=== PATIENT | female | born 1965 | race Caucasian/White ===

== ENCOUNTER 2016-03-27 01:49 | Inpatient (IN) | payer OTHER ==
--- NOTE | 2016-03-27 02:08 | PDOC ---
History of Present Illness - General History Source: Patient Exam Limitations: No Limitations - History of Present Illness Initial Comments: 03/27/16 02:28 The patient is a 51 year old female with significant past medical history of Asthma, hypoglycemia, and COPD who presents to the ED with 4 days of SOB. Patient reports she went to [place] recently and came back on Friday. She states since then she felt SOB and believes the changes in temperature triggered her symptoms. She also reports nonproductive cough and chest tightness , which she describes as being crushed. Patient reports her symptoms are consistent to her previous COPD and asthma exacerbation. She reports h/o of intubation and hospitalization for her asthma exacerbation. Patient visited Dr. Stockton earlier today and was discharge on prescription from the office. However , she was unable to receive her prescription. Patient denies fever, chills, diaphoresis, chest pain, jaw pain, shoulder pain, and arm pain. The patient denies abdominal pain, nausea, vomiting, and diarrhea. Allergies: ketorolac tromethamine, morphine, tramadol, levofloxacin, penicillins , sulfa, clindamycin, acetaminophen, oxycodone HCl, contrast dye Social History: No alcohol, tobacco, or drug use reported. Past Surgical History: TKR left x2 PCP: Dr. Shanta Stockton <Louisa Adorno - Last Filed: 03/27/16 05:57> - General History Source: Patient <Kev Cedillo - Last Filed: 03/27/16 06:00> - General Chief Complaint: Respiratory Stated Complaint: DIFFICULTY BREATHING Time Seen by Provider: 03/27/16 02:06 Past History <Louisa Adorno - Last Filed: 03/27/16 05:57> - Past Medical History Anemia: No Asthma: Yes Cancer: No Cardiac Disorders: No CVA: No COPD: Yes CHF: No Dementia: No Diabetes: (HYPOGLYCEMIA) GI Disorders: No Disorders: No HTN: No Hypercholesterolemia: No Liver Disease: No Seizures: No Thyroid Disease: Yes (3 MASSES) - Surgical History Abdominal Surgery: Yes (LAPARSCOPIC) Appendectomy: No Cholecystectomy: No Orthopedic Surgery: Yes (TKR LEFT X2) - Immunization History Immunization Up to Date: Yes - Psycho/Social/Smoking Cessation Hx Anxiety: No Suicidal Ideation: No Smoking History: Never smoked Have you smoked in the past 12 months: No Hx Alcohol Use: No Drug/Substance Use Hx: No Substance Use Type: None Hx Substance Use Treatment: No <Kev Cedillo - Last Filed: 03/27/16 06:00> - Past Medical History Allergies/Adverse Reactions: Allergies Allergy/AdvReac Type Severity Reaction Status Date / Time ketorolac tromethamine Allergy Severe Difficulty Verified 03/27/16 01:54 [From Toradol] Breathing morphine Allergy Severe Difficulty Verified 03/27/16 01:54 Breathing tramadol Allergy Severe Difficulty Verified 03/27/16 01:54 Breathing levofloxacin [From Levaquin] Allergy Intermediate Hives Verified 03/27/16 01:54 Penicillins Allergy Intermediate Swelling Verified 03/27/16 01:54 Sulfa (Sulfonamide Allergy Intermediate Rash Verified 03/27/16 01:54 Antibiotics) clindamycin Allergy Verified 03/27/16 01:54 acetaminophen [From Percocet] AdvReac Severe Vomiting Verified 03/27/16 01:54 oxycodone HCl [From Percocet] AdvReac Severe Vomiting Verified 03/27/16 01:54 PECANS Allergy Intermediate Swelling Uncoded 03/27/16 01:54 contrast dye Allergy Uncoded 03/27/16 01:54 MUSHROOMS Allergy Rash Uncoded 03/27/16 01:54 SEAFOOD Allergy Swelling Uncoded 03/27/16 01:54 Home Medications: Ambulatory Orders Albuterol Sulfate Inhaler - [Ventolin HFA Inhaler -] 1 - 2 inh PO QID 06/16/14 Levothyroxine [Synthroid -] 50 mcg PO DAILY 03/27/16 Review of Systems - Review of Systems Able to Perform ROS?: Yes Comments:: 03/27/16 02:28 CONSTITUTIONAL: Absent: fever, chills, diaphoresis, generalized weakness, malaise, loss of appetite HEENT: Absent: rhinorrhea, nasal congestion, throat pain, throat swelling, difficulty swallowing, mouth swelling, ear pain, eye pain, visual Changes CARDIOVASCULAR: Absent: chest pain, syncope, palpitations, irregular heart rate, lightheadedness , peripheral edema RESPIRATORY: +cough, shortness of breath, chest tightness Absent: dyspnea with exertion, orthopnea, wheezing, stridor, hemoptysis GASTROINTESTINAL: Absent: abdominal pain, abdominal distension, nausea, vomiting, diarrhea, constipation, melena, hematochezia GENITOURINARY: Absent: dysuria, frequency, urgency, hesitancy, hematuria, flank pain, genital pain MUSCULOSKELETAL: Absent: myalgia, arthralgia, joint swelling SKIN: Absent: rash, itching, pallor NEUROLOGIC: Absent: headache, focal weakness or paresthesias, dizziness, unsteady gait, seizure, mental status changes, bladder or bowel incontinence PSYCHIATRIC: Absent: anxiety, depression, suicidal or homicidal ideation, hallucinations. <Louisa Adorno - Last Filed: 03/27/16 05:57> *Physical Exam - Vital Signs Last Vital Signs Temp Pulse Resp BP Pulse Ox 98.5 F 99 H 18 155/95 97 03/27/16 01:54 03/27/16 01:54 03/27/16 01:54 03/27/16 01:54 03/27/16 01:54 - Physical Exam Comments: 03/27/16 02:28 GENERAL: Well developed, well nourished. Awake and alert. No acute distress. HEENT: Normocephalic, atraumatic. PERRLA, EOMI. No conjunctival pallor. Sclera are non- icteric. Moist mucous membranes. Oropharynx is clear. NECK: Supple. Full ROM. No JVD. Carotid pulses 2+ and symmetric, without bruits. No thyromegaly. No lymphadenopathy. CARDIOVASCULAR: Regular rate and rhythm. No murmurs, rubs, or gallops. Distal pulses are 2+ and symmetric. PULMONARY: Decreased breath sounds bilaterally. No wheezing, rales or rhonchi. ABDOMINAL: Soft. Non-tender. Non-distended. No rebound or guarding. No organomegaly. Normoactive bowel sounds. MUSCULOSKELETAL Normal range of motion at all joints. No bony deformities or tenderness. No CVA tenderness. EXTREMITIES: No cyanosis. No clubbing. No edema. No calf tenderness. SKIN: Warm and dry. Normal capillary refill. No rashes. No jaundice. NEUROLOGICAL: Alert, awake, appropriate. Cranial nerves 2-12 intact. Moving all extremities. No focal neurological deficits. PSYCHIATRIC: Cooperative. Good eye contact. Appropriate mood and affect. <Louisa Adorno - Last Filed: 03/27/16 05:57> - Vital Signs Last Vital Signs Temp Pulse Resp BP Pulse Ox 98.5 F 99 H 18 155/95 97 03/27/16 01:54 03/27/16 01:54 03/27/16 01:54 03/27/16 01:54 03/27/16 01:54 <Kev Cedillo - Last Filed: 03/27/16 06:00> ED Treatment Course - LABORATORY CBC & Chemistry Diagram: 03/27/16 02:30 03/27/16 02:30 <Louisa Adorno - Last Filed: 03/27/16 05:57> - LABORATORY CBC & Chemistry Diagram: 03/27/16 02:30 03/27/16 02:30 <Kev Cedillo - Last Filed: 03/27/16 06:00> Medical Decision Making - Medical Decision Making 03/27/16 05:[address] Shanta Stockton (via answering service) at 5:56 and patient's case was discussed. <Louisa Adorno - Last Filed: 03/27/16 05:57> - Medical Decision Making 03/27/16 06:00 Dr. Cedillo: The scribe's documentation has been prepared under my direction and personally reviewed by me in its entirery. I confirm that the note above accurately reflects all work, treatment, procedures, and medical decision making performed by me. <Kev Cedillo - Last Filed: 03/27/16 06:00> *DC/Admit/Observation/Transfer - Attestations Scribe Attestion: 03/27/16 02:28 Documentation prepared by Louisa Adorno, acting as durable medical equipment repairer for Kev Cedillo MD <Louisa Adorno - Last Filed: 03/27/16 05:57> <Kev Cedillo - Last Filed: 03/27/16 06:00> Diagnosis at time of Disposition: COPD (chronic obstructive pulmonary disease) Qualifiers: COPD type: unspecified COPD Qualified Code(s): J44.9 - Chronic obstructive pulmonary disease, unspecified - Discharge Dispostion Condition at time of disposition: Poor - Referrals Referrals: Shanta Stockton MD [Primary Care Provider] -
[2016-03-27] MEDS ORDERED: MAGNESIUM SULF 50% (8.12 MEQ/2 ML-1 GM VIAL) IVPB ONE (02:09)
[2016-03-27] MEDS ORDERED: ALBUTEROL SO4 2.5/IPRATROPIUM 0.5 INH SOL 3 ML VIAL.NEB. NEB STA ×4 (02:09→05:20)
[2016-03-27] MEDS ORDERED: methylPREDNISolone NA SUCC 125 MG/2 ML VIAL IVPB ONE (02:09)
[2016-03-27] MEDS ORDERED: ALBUTEROL SO4 2.5/IPRATROPIUM 0.5 INH SOL 3 ML VIAL.NEB. NEB ONE ×2 (02:36→05:32)
[2016-03-27] MEDS ORDERED: MAGNESIUM SULF 50% (8.12 MEQ/2 ML-1 GM VIAL) ONE (02:36)
[2016-03-27] MEDS ORDERED: methylPREDNISolone NA SUCC 125 MG/2 ML VIAL ONE ×2 (02:37→08:53)
[2016-03-27 02:39] LABS: BASOPHIL 0.8 % (0-2.0); EOSINOPHIL 2.7 % (0-4.5); MCH 30.5 pg (25.7-33.7); MCHC 33.1 g/dl (32.0-36.0); MEAN CELL VOLUME 92.1 fl (80-96); MEAN PLT VOLUME 6.4 fl (7.5-11.1); NEUTROPHILS 66.5 % (42.8-82.8); PLATELET COUNT 330 K/MM3 (134-434); RDW 14.1 % (11.6-15.6); WHITE BLOOD COUNT 10.1 K/mm3 (4.0-10.0)
[2016-03-27 03:04] LABS: ALBUMIN 3.6 g/dl (3.4-5.0); ANION GAP 10 (8-16); BILIRUBIN,TOTAL 0.3 mg/dL (0.2-1.0); CALCIUM 8.6 mg/dL (8.5-10.1); CO2 27 mmol/L (21-32); CREATININE 0.8 mg/dL (0.55-1.02); GLUCOSE,RANDOM 108 mg/dL (74-106); SGOT/AST 28 U/L (15-37); SGPT/ALT 36 U/L (12-78); TOT PROT 7.3 g/dl (6.4-8.2)
[2016-03-27 03:05] LABS: ALK PHOS 103 U/L (45-117)
[2016-03-27] MEDS ORDERED: ALBUTEROL SO4 2.5/IPRATROPIUM 0.5 INH SOL 3 ML VIAL.NEB. NEB PRN (07:26)
[2016-03-27] MEDS: methylPREDNISolone NA SUCC 125 MG/2 ML VIAL IVPB SCH ×2 (09:08→18:12)
--- NOTE | 2016-03-27 09:33 | EKG ---
Test Reason : Blood Pressure : / mmHG Vent. Rate : 105 BPM Atrial Rate : 105 BPM P-R Int : 164 ms QRS Dur : 092 ms QT Int : 372 ms P-R-T Axes : 073 -17 026 degrees QTc Int : 491 ms SINUS TACHYCARDIA POSSIBLE LEFT ATRIAL ENLARGEMENT BORDERLINE ECG WHEN COMPARED WITH ECG OF 04-JUL-2015 00:53, NON-SPECIFIC CHANGE IN ST SEGMENT IN ANTERIOR LEADS Confirmed by JAMEY NOLEN, MARIA E ([id number]) on 03/27/2016 9:33:05 AM Referred By: Confirmed By:MARIA E CONCEPCION MD
[2016-03-27] MEDS ORDERED: HEPARIN NA (PORCINE) 5,000 UNITS/ML 1ML VIAL ONE (10:07)
[2016-03-27] MEDS: HEPARIN NA (PORCINE) 5,000 UNITS/ML 1ML VIAL SQ SCH ×2 (10:10→22:15)
[2016-03-27 10:51] VITALS: BMI 28.3
--- NOTE | 2016-03-27 11:02 | HP ---
Admitting History and Physical - Primary Care Physician PCP: Shanta Stockton - Admission Chief Complaint: AE COPD History Source: Medical Record - Past Medical History ...LMP: 05/23/15 - Smoking History Smoking history: Never smoked Have you smoked in the past 12 months: No - Alcohol/Substance Use Hx Alcohol Use: No Home Medications - Allergies Allergies/Adverse Reactions: Allergies Allergy/AdvReac Type Severity Reaction Status Date / Time ketorolac tromethamine Allergy Severe Difficulty Verified 03/27/16 01:54 [From Toradol] Breathing morphine Allergy Severe Difficulty Verified 03/27/16 01:54 Breathing tramadol Allergy Severe Difficulty Verified 03/27/16 01:54 Breathing levofloxacin [From Levaquin] Allergy Intermediate Hives Verified 03/27/16 01:54 Penicillins Allergy Intermediate Swelling Verified 03/27/16 01:54 Sulfa (Sulfonamide Allergy Intermediate Rash Verified 03/27/16 01:54 Antibiotics) clindamycin Allergy Verified 03/27/16 01:54 acetaminophen [From Percocet] AdvReac Severe Vomiting Verified 03/27/16 01:54 oxycodone HCl [From Percocet] AdvReac Severe Vomiting Verified 03/27/16 01:54 PECANS Allergy Intermediate Swelling Uncoded 03/27/16 01:54 contrast dye Allergy Uncoded 03/27/16 01:54 MUSHROOMS Allergy Rash Uncoded 03/27/16 01:54 SEAFOOD Allergy Swelling Uncoded 03/27/16 01:54 - Home Medications Home Medications: Ambulatory Orders Albuterol Sulfate Inhaler - [Ventolin HFA Inhaler -] 1 - 2 inh PO QID 06/16/14 Levothyroxine [Synthroid -] 50 mcg PO DAILY 03/27/16 Review of Systems - Review of Systems Constitutional: denies: Chills, Fever Cardiovascular: reports: Chest Pain (ATYPICAL. REPRODUCIBLE WITH DEEP INSPIRATION. PLEURITIC) Respiratory: reports: SOB Gastrointestinal: denies: Abdominal Pain Physical Examination Vital Signs: Vital Signs Temperature 98.2 F 03/27/16 08:27 Pulse Rate 103 H 03/27/16 10:30 Respiratory Rate 18 03/27/16 10:30 Blood Pressure 126/75 03/27/16 10:30 O2 Sat by Pulse Oximetry (%) 94 L 03/27/16 10:30 Constitutional: Yes: Calm Cardiovascular: Yes: Regular Rate and Rhythm, S1, S2 Respiratory: Yes: Rhonchi Gastrointestinal: Yes: Normal Bowel Sounds, Soft Edema: No Imaging - Results Chest X-ray: Report Reviewed Problem List - Problems (1) COPD (chronic obstructive pulmonary disease) Code(s): J44.9 - CHRONIC OBSTRUCTIVE PULMONARY DISEASE, UNSPECIFIED Qualifiers : COPD type: unspecified COPD Qualified Code(s): J44.9 - Chronic obstructive pulmonary disease, unspecified (2) Thyroid mass Code(s): E07.9 - DISORDER OF THYROID, UNSPECIFIED (3) Asthma Code(s): J45.909 - UNSPECIFIED ASTHMA, UNCOMPLICATED Assessment/Plan The patient is a 51 year old female with significant past medical history of Asthma, hypoglycemia, and COPD who presents to the ED with 4 days of SOB. Patient reports she went to [place] recently and came back on Friday. She states since then she felt SOB and believes the changes in temperature triggered her symptoms. She also reports nonproductive cough and chest tightness , which she describes as being crushed. Patient reports her symptoms are consistent to her previous COPD and asthma exacerbation. She reports h/o of intubation and hospitalization for her asthma exacerbation. Patient visited Dr. Stockton earlier today and was discharge on prescription from the office. However , she was unable to receive her prescription. Patient denies fever, chills, diaphoresis, chest pain, jaw pain, shoulder pain, and arm pain. The patient denies abdominal pain, nausea, vomiting, and diarrhea. Allergies: ketorolac tromethamine, morphine, tramadol, levofloxacin, penicillins , sulfa, clindamycin, acetaminophen, oxycodone HCl, contrast dye Social History: No alcohol, tobacco, or drug use reported. Past Surgical History: TKR left x2 PCP: Dr. 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
--- NOTE | 2016-03-27 14:51 | CONSULT ---
Consultation: CONSULT: INFECTIOUS DISEASE CONSULT REQUEST: We have been asked to medically evaluate this patient for Pneumonia/COPD. HISTORY OF PRESENT ILLNESS: 51 year old female presented to the ED with chief complaints of SOB x 4days. Patient states that she returned after a month trip from [place] 5 days ago. Then started having wheeze on/off, difficulty in breathing got worse over the days. Since last 2 days, heard abnormal sounds while breathing. It was associated with cough on/off, non productive, gets nasty taste in the mouth. SOB got worse on lying flat in bed. Headache +, on/off. Had stuffy nose last night. Patient states she has chest pressure type of discomfort like " Elephant sitting on chest". No h/o prior heart problems. Patient feels tired and is gaining weight. In her 20's she had pecan pie, got anaphylaxis and nearly got intubated. No h/o intubation due to COPD. Didn't get flu shot this year. Last year when she got it patient mentions she got flu from the flu vaccine Denies sick contacts. Denies fever, chills, rigors. 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 Allergies: Ketorolac, Morphine, Tramadol, Levofloxacin (gets a rash), Penicillins, clindamycin and sulfa (gets SOB), Oxycodone, acetaminophen, contrast dye, seafood, pecans, strawberry. Patient mentions she is NOT ALLERGIC TO Azithromycin, Flagyl, Ciprofloxacin. Verbally confirmed. Past Surgical Hx: TKR ( 04/22/2014) x 2, Left thyroid lobectomy Hospitalization: 4 admissions in 2016. Last admitted in 06/30/2015 Social Hx: Never smoked, never took alcohol, no illicit drugs Lives with her daughter and grand child Lifestyle sedentary, is in disability PCP: Dr. Mahin Parker REVIEW OF SYSTEMS: CONSTITUTIONAL: Absent: fever, chills, diaphoresis, generalized weakness, malaise, loss of appetite, weight change HEENT: Absent: rhinorrhea, nasal congestion, throat pain, throat swelling, difficulty swallowing, mouth swelling, ear pain, eye pain, visual changes CARDIOVASCULAR: Absent: chest pain, syncope, palpitations, irregular heart rate, lightheadedness , peripheral edema RESPIRATORY: Present: cough, shortness of breath, dyspnea with exertion, orthopnea, wheezing Absent: stridor, hemoptysis GASTROINTESTINAL: Present: abdominal pain Absent: abdominal distension, nausea, vomiting, diarrhea, constipation, melena , hematochezia GENITOURINARY: Absent: dysuria, frequency, urgency, hesitancy, hematuria, flank pain, genital pain MUSCULOSKELETAL: Absent: myalgia, arthralgia, joint swelling, back pain, neck pain SKIN: Absent: rash, itching, pallor HEMATOLOGIC/IMMUNOLOGIC: Absent: easy bleeding, easy bruising, lymphadenopathy, frequent infections ENDOCRINE: Absent: unexplained weight gain, unexplained weight loss, heat intolerance, cold intolerance NEUROLOGIC: Absent: headache, focal weakness or paresthesias, dizziness, unsteady gait, seizure, mental status changes, bladder or bowel incontinence PSYCHIATRIC: Absent: anxiety, depression, suicidal or homicidal ideation, hallucinations. PHYSICAL EXAMINATION Vital Signs - 24 hr 03/27/16 03/27/16 03/27/16 07:10 07:33 08:27 Temperature 98.2 F Pulse Rate Pulse Rate [ 95 H 100 H Left Radial] Respiratory 20 20 20 Rate Blood Pressure Blood Pressure 148/95 136/85 [Right Arm] O2 Sat by Pulse 98 98 99 Oximetry (%) 03/27/16 03/27/16 10:30 13:29 Temperature Pulse Rate 103 H Pulse Rate [ 110 H Left Radial] Respiratory 18 16 Rate Blood Pressure 126/75 Blood Pressure 144/76 [Right Arm] O2 Sat by Pulse 94 L 94 L Oximetry (%) GENERAL: Patient is lying in bed in propped up position, Awake, alert, and fully oriented, mild respiratory distress. HEAD: Normal with no signs of trauma. EYES: Mild proptosis, EOM intact, no pallor or icterus. EARS, NOSE, THROAT: Ears normal, Moist mucous membranes. NECK: Supple LUNGS: Breath sounds equal, clear to auscultation bilaterally. No wheezes, and no crackles. No accessory muscle use. HEART: Regular rate and rhythm, normal S1 and S2, Systolic murmur +. ABDOMEN: Soft, nontender, not distended, normoactive bowel sounds, no guarding, no rebound, no masses. No hepatomegaly or splenomegaly. MUSCULOSKELETAL: Normal range of motion at all joints. No bony deformities or tenderness. No CVA tenderness. UPPER EXTREMITIES: 2+ pulses, warm, well-perfused. No cyanosis. No clubbing. Cap refill <2 seconds. No peripheral edema. LOWER EXTREMITIES: 2+ pulses, warm, well-perfused. No calf tenderness. B/L trace pitting edema, torturous veins + Left. NEUROLOGICAL: Cranial nerves II-XII intact. Normal speech. Gait not observed. PSYCHIATRIC: Cooperative. Good eye contact. Appropriate mood and affect. SKIN: Warm, dry, normal turgor, no rashes or lesions noted. Active Medications Generic Name Dose Route Start Last Admin Trade Name Freq PRN Reason Stop Dose Admin Albuterol/Ipratropium 1 amp 03/27/16 07:26 Duoneb - NEB Q6H PRN SHORTNESS OF BREATH Heparin Sodium (Porcine) 5,000 unit 03/27/16 10:00 03/27/16 10:10 Heparin - SQ 5,000 unit BID DAWIT Administration Levothyroxine Sodium 50 mcg 03/28/16 07:00 Synthroid - PO DAILY@0700 DAWIT Methylprednisolone Sodium Succinate 80 mg 03/27/16 09:00 03/27/16 09:08 Solu-Medrol - IVPB 80 mg Q8H-IV DAWIT Administration 51 year old female presented to the ED with chief complaints of SOB x 4days ASSESSMENT: 1. AE of Asthma 2. COPD - Now stable 3. Hypoglycemia 4. 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 Patient presented with SOB, no h/o fever, afebrile since admission, negative CXR. Doesn't need antibiotics at this time, discussed with Dr. Stanford If needed, can use Azithromycin Nasal oxygen PRN Inhaled bronchodilaters PRN Maintain oxygen sat >90% # FEN Not on IV fluids Electrolytes WNL # Prophylaxis For DVT: On Heparin For GI: Not indicated Illness, Investigation and plan of care explained to the patient. She verbalized understanding. Case seen and discussed with Dr. Stanford Thank you for the consultative opportunity. Visit type - Emergency Visit Emergency Visit: Yes ED Registration Date: 03/27/16 Care time: The patient presented to the Emergency Department on the above date and was hospitalized for further evaluation of their emergent condition. - New Patient This patient is new to me today: Yes Date on this admission: 03/27/16 - Critical Care Critical Care patient: No
--- NOTE | 2016-03-27 15:02 | CONSULT ---
Consult Consult Specialty:: PULMONARY Referred by:: Dr. Pritchard Reason for Consultation:: shortness of breath - History of Present Illness Chief Complaint: shortness of breath History of Present Illness: 51yo female with h/o asthma/COPD, hypothyroidism who presents with worsening shortness of breath x 4 days. She just returned from [place] 4 days ago, no sick contacts but she attributes her worsening dyspnea to the change in air temperature. She reports chest tightness and a nonproductive cough. No fevers, chills or sweats. She reports an attempted intubation in the past, is on prednisone about once every 2 months. She is a never smoker. She is maintained on nebulizers at home, used to be on a LABA/ICS but does not take them anymore. - History Source History Provided By: Patient, Medical Record Limitations to Obtaining History: No Limitations - Past Medical History Pulmonary: Yes: Asthma, COPD ...LMP: 05/23/15 Endocrine: Yes: Hypothyroidism - Alcohol/Substance Use Hx Alcohol Use: No - Smoking History Smoking history: Never smoked Have you smoked in the past 12 months: No Home Medications - Allergies Allergies/Adverse Reactions: Allergies Allergy/AdvReac Type Severity Reaction Status Date / Time ketorolac tromethamine Allergy Severe Difficulty Verified 03/27/16 01:54 [From Toradol] Breathing morphine Allergy Severe Difficulty Verified 03/27/16 01:54 Breathing tramadol Allergy Severe Difficulty Verified 03/27/16 01:54 Breathing levofloxacin [From Levaquin] Allergy Intermediate Hives Verified 03/27/16 01:54 Penicillins Allergy Intermediate Swelling Verified 03/27/16 01:54 Sulfa (Sulfonamide Allergy Intermediate Rash Verified 03/27/16 01:54 Antibiotics) clindamycin Allergy Verified 03/27/16 01:54 acetaminophen [From Percocet] AdvReac Severe Vomiting Verified 03/27/16 01:54 oxycodone HCl [From Percocet] AdvReac Severe Vomiting Verified 03/27/16 01:54 PECANS Allergy Intermediate Swelling Uncoded 03/27/16 01:54 contrast dye Allergy Uncoded 03/27/16 01:54 MUSHROOMS Allergy Rash Uncoded 03/27/16 01:54 SEAFOOD Allergy Swelling Uncoded 03/27/16 01:54 - Home Medications Home Medications: Ambulatory Orders Albuterol Sulfate Inhaler - [Ventolin HFA Inhaler -] 1 - 2 inh PO QID 04/02/15 Levothyroxine [Synthroid -] 50 mcg PO DAILY 03/27/16 Review of Systems - Review of Systems Constitutional: reports: Weakness. denies: Chills, Fever Eyes: denies: Recent Change in Vision HENT: denies: Nasal Congestion, Throat Pain Neck: denies: Stiffness, Tenderness Cardiovascular: reports: Shortness of Breath. denies: Chest Pain, Edema, Palpitations Respiratory: reports: Cough, Exercise Intolerance, SOB, SOB on Exertion, Wheezing. denies: Hemoptysis Gastrointestinal: denies: Abdominal Pain, Nausea, Vomiting Genitourinary: denies: Dysuria, Hematuria Neurological: denies: Dizziness, Headache Physical Exam Vital Sings: Vital Signs Temperature 98.2 F 03/27/16 08:27 Pulse Rate 110 H 03/27/16 13:29 Respiratory Rate 16 03/27/16 13:29 Blood Pressure 144/76 03/27/16 13:29 O2 Sat by Pulse Oximetry (%) 94 L 03/27/16 13:29 Constitutional: Yes: Anxious Eyes: Yes: Conjunctiva Clear, EOM Intact HENT: Yes: Atraumatic, Normocephalic Neck: Yes: Supple, Trachea Midline Cardiovascular: Yes: Regular Rate and Rhythm Respiratory: Yes: Diminished (distant breath sounds), Poor Air Entry ...Clubbing: No Gastrointestinal: Yes: Normal Bowel Sounds, Soft. No: Tenderness Edema: No Imaging - Results Chest X-ray: Report Reviewed, Image Reviewed (no infiltrates) Problem List - Problems (1) Acute asthma exacerbation Code(s): J45.901 - UNSPECIFIED ASTHMA WITH (ACUTE) EXACERBATION (2) COPD (chronic obstructive pulmonary disease) Code(s): J44.9 - CHRONIC OBSTRUCTIVE PULMONARY DISEASE, UNSPECIFIED Qualifiers : COPD type: unspecified COPD Qualified Code(s): J44.9 - Chronic obstructive pulmonary disease, unspecified (3) Hypothyroidism Code(s): E03.9 - HYPOTHYROIDISM, UNSPECIFIED Assessment/Plan Acute Asthma Exacerbation COPD Hypothryoidism - IV medrol - inhaled bronchodilators standing and PRN - O2 to keep SpO2 >90% - monitor daily peak flow - DVT prophylaxis - will need outpt PFTs - when ready for discharge, should be discharged on high dose LABA/ICS Thank you for this consult Fei Hewitt MD
--- NOTE | 2016-03-27 16:11 | PN ---
Teaching Attending Note Name of Resident: Fauzia Díaz ATTENDING PHYSICIAN STATEMENT I saw and evaluated the patient. I reviewed the resident's note and discussed the case with the resident. I agree with the resident's findings and plan as documented. SUBJECTIVE: OBJECTIVE: ASSESSMENT AND PLAN: asthma exacerbation0 ?triggered by cleaning agents- management per pulmonary doubt infection would screen for influenza multiple antibiotic allergies noted
[2016-03-27] MEDS: ALBUTEROL SO4 2.5/IPRATROPIUM 0.5 INH SOL 3 ML VIAL.NEB. NEB SCH (17:25)
[2016-03-28] MEDS: ALBUTEROL SO4 2.5/IPRATROPIUM 0.5 INH SOL 3 ML VIAL.NEB. NEB SCH ×4 (00:10→23:03)
[2016-03-28] MEDS: methylPREDNISolone NA SUCC 125 MG/2 ML VIAL IVPB SCH ×3 (02:27→18:38)
[2016-03-28] MEDS: LEVOTHYROXINE NA 50 MCG TABLET (FP) PO SCH (03:46)
[2016-03-28 07:16] LABS: MCH 31.3 pg (25.7-33.7); MCHC 33.5 g/dl (32.0-36.0); MEAN CELL VOLUME 93.4 fl (80-96); MEAN PLT VOLUME 6.4 fl (7.5-11.1); PLATELET COUNT 379 K/MM3 (134-434); RDW 14.6 % (11.6-15.6)
[2016-03-28 08:58] LABS: ALBUMIN 3.5 g/dl (3.4-5.0); ALK PHOS 107 U/L (45-117); ANION GAP 12 (8-16); BILIRUBIN,TOTAL 0.3 mg/dL (0.2-1.0); CALCIUM 9.2 mg/dL (8.5-10.1); CO2 21 mmol/L (21-32); CREATININE 0.9 mg/dL (0.55-1.02); GLUCOSE,RANDOM 182 mg/dL (74-106); SGOT/AST 25 U/L (15-37); SGPT/ALT 41 U/L (12-78); TOT PROT 7.3 g/dl (6.4-8.2)
[2016-03-28] MEDS ORDERED: PICC LINE 8 ML FLUSH PROTOCOL IVPUSH PRN (10:01)
--- NOTE | 2016-03-28 10:01 | PN ---
Progress Note, Physician Chief Complaint: AWAKE STILL C/O DYSPNEA NO FEVER, NO CHILLS +APPETITE +BM - Current Medication List Current Medications: Active Medications Albuterol Sulfate (Ventolin 0.083% Nebulizer Soln -) 1 amp NEB Q4H PRN PRN Reason: SHORT OF BREATH/WHEEZING Albuterol/Ipratropium (Duoneb -) 1 amp NEB QIDR [facility] Last Admin: 03/28/16 06:31 Dose: 1 amp Heparin Sodium (Porcine) (Heparin -) 5,000 unit SQ BID [facility] Last Admin: 03/27/16 22:15 Dose: 5,000 unit Levothyroxine Sodium (Synthroid -) 50 mcg PO DAILY@0000 [facility] Last Admin: 03/28/16 03:46 Dose: 50 mcg Methylprednisolone Sodium Succinate (Solu-Medrol -) 80 mg IVPB Q8H-IV [facility] Last Admin: 03/28/16 02:27 Dose: 80 mg - Objective Vital Signs: Vital Signs Temperature 98.6 F 03/28/16 06:00 Pulse Rate 94 H 03/28/16 06:00 Respiratory Rate 20 03/28/16 06:00 Blood Pressure 128/76 03/28/16 06:00 O2 Sat by Pulse Oximetry (%) 95 03/27/16 21:00 Constitutional: Yes: Mild Distress Eyes: Yes: WNL HENT: Yes: WNL Neck: Yes: WNL Cardiovascular: Yes: WNL Respiratory: Yes: Diminished, On Nasal O2, Poor Air Entry Gastrointestinal: Yes: WNL Genitourinary: Yes: WNL Musculoskeletal: Yes: WNL Extremities: Yes: WNL Edema: No Peripheral Pulses WNL: Yes Integumentary: Yes: WNL Wound/Incision: Yes: Clean/Dry Neurological: Yes: WNL ...Motor Strength: WNL Psychiatric: Yes: WNL Labs: CBC, BMP 03/28/16 06:00 03/28/16 06:00 Problem List - Problems (1) Acute asthma exacerbation Code(s): J45.901 - UNSPECIFIED ASTHMA WITH (ACUTE) EXACERBATION (2) Asthma Code(s): J45.909 - UNSPECIFIED ASTHMA, UNCOMPLICATED (3) Hypothyroidism Code(s): E03.9 - HYPOTHYROIDISM, UNSPECIFIED (4) Atypical chest pain Code(s): R07.89 - OTHER CHEST PAIN Assessment/Plan ACUTE ASTHMA STEROIDS IV NEBS DVT PROPHYLAXIS OOB TO CHAIR
--- NOTE | 2016-03-28 10:10 | PN ---
Progress Note (short form) - Note Progress Note: PULMONARY Breathing about the same. Peak flow measurement attempted, limited by pain with deep inspiration from coughing. +nonproductive cough. No fevers recorded. Last Vital Signs Temp Pulse Resp BP Pulse Ox 98.6 F 94 H 20 128/76 95 03/28/16 06:00 03/28/16 06:00 03/28/16 06:00 03/28/16 06:00 03/27/16 21:00 Gen: NAD at rest Heart: RRR Lung: no wheezes, poor effort Abd: soft, nontender Ext: no edema CBC, BMP 03/28/16 06:00 03/28/16 06:00 Active Medications Albuterol Sulfate (Ventolin 0.083% Nebulizer Soln -) 1 amp NEB Q4H PRN PRN Reason: SHORT OF BREATH/WHEEZING Albuterol/Ipratropium (Duoneb -) 1 amp NEB QIDR [facility] Last Admin: 03/28/16 06:31 Dose: 1 amp Heparin Sodium (Porcine) (Heparin -) 5,000 unit SQ BID [facility] Last Admin: 03/27/16 22:15 Dose: 5,000 unit IV Flush (Picc Line Flush) 8 ml IVPUSH PRN PRN PRN Reason: Protocol Levothyroxine Sodium (Synthroid -) 50 mcg PO DAILY@0000 [facility] Last Admin: 03/28/16 03:46 Dose: 50 mcg Methylprednisolone Sodium Succinate (Solu-Medrol -) 80 mg IVPB Q8H-IV [facility] Last Admin: 03/28/16 02:27 Dose: 80 mg A/P Acute Asthma Exacerbation COPD Hypothryoidism - continue medrol at current dose - inhaled bronchodilators standing and PRN - O2 to keep SpO2 >90% - monitor daily peak flow - DVT prophylaxis - outpt PFTs - when ready for discharge, should be discharged on high dose LABA/ICS Problem List - Problems (1) Acute asthma exacerbation Code(s): J45.901 - UNSPECIFIED ASTHMA WITH (ACUTE) EXACERBATION (2) COPD (chronic obstructive pulmonary disease) Code(s): J44.9 - CHRONIC OBSTRUCTIVE PULMONARY DISEASE, UNSPECIFIED Qualifiers : COPD type: unspecified COPD Qualified Code(s): J44.9 - Chronic obstructive pulmonary disease, unspecified (3) Hypothyroidism Code(s): E03.9 - HYPOTHYROIDISM, UNSPECIFIED
[2016-03-28] MEDS: HEPARIN NA (PORCINE) 5,000 UNITS/ML 1ML VIAL SQ SCH ×2 (11:37→22:17)
[2016-03-28 12:22] LABS: THYROID STIMULATING HORMONE 0.91 uIU/ml (0.358-3.74)
--- NOTE | 2016-03-28 14:21 | PN ---
Physical Exam: SUBJECTIVE: Patient seen and examined at bed side this afternoon. Feels the same. Cough still persists, had productive sputum this morning, greenish in color +. No other problems. Denies fever, chest pain, abdominal pain, nausea or vomiting. OBJECTIVE: Vital Signs Period Temp Pulse Resp BP Sys/Edmonds Pulse Ox Last 24 Hr 97.8 F-98.8 F 77-111 18-22 128-146/74-79 95-96 GENERAL: Patient is lying in bed in propped up position, Awake, alert, and fully oriented, mild respiratory distress. HEAD: Normal with no signs of trauma. EYES: Mild proptosis, EOM intact, no pallor or icterus. EARS, NOSE, THROAT: Ears normal, Moist mucous membranes. NECK: Supple LUNGS: Breath sounds equal, scattered rhonchi +, Wheeze +, no crackles. HEART: Regular rate and rhythm, normal S1 and S2, Systolic murmur +. ABDOMEN: Soft, nontender, not distended, normoactive bowel sounds, no guarding, no rebound, no masses. No hepatomegaly or splenomegaly. MUSCULOSKELETAL: Normal range of motion at all joints. No bony deformities or tenderness. No CVA tenderness. UPPER EXTREMITIES: 2+ pulses, warm, well-perfused. No cyanosis. No clubbing. Cap refill <2 seconds. No peripheral edema. LOWER EXTREMITIES: 2+ pulses, warm, well-perfused. No calf tenderness. B/L trace pitting edema, torturous veins + Left. NEUROLOGICAL: Cranial nerves II-XII intact. Normal speech. Gait not observed. PSYCHIATRIC: Cooperative. Good eye contact. Appropriate mood and affect. SKIN: Warm, dry, normal turgor, no rashes or lesions noted. Laboratory Results - last 24 hr 03/28/16 03/28/16 06:00 06:00 WBC 23.0 H D RBC 4.49 Hgb 14.0 Hct 41.9 MCV 93.4 MCHC 33.5 RDW 14.6 Plt Count 379 MPV 6.4 L Neutrophils % 87.0 H D Lymphocytes % 8.0 D Monocytes % 1.0 L D Band Neutrophils 4.0 Differential Comment Manual diff done Sodium 140 Potassium 3.5 Chloride 107 Carbon Dioxide 21 D Anion Gap 12 BUN 15 D Creatinine 0.9 Creat Clearance w eGFR > 60 Random Glucose 182 H D Calcium 9.2 Total Bilirubin 0.3 AST 25 ALT 41 Alkaline Phosphatase 107 Total Protein 7.3 Albumin 3.5 TSH 0.91 D Active Medications Generic Name Dose Route Start Last Admin Trade Name Freq PRN Reason Stop Dose Admin Albuterol Sulfate 1 amp 03/27/16 15:08 Ventolin 0.083% Nebulizer Soln - NEB Q4H PRN SHORT OF BREATH/WHEEZING Albuterol/Ipratropium 1 amp 03/27/16 18:00 03/28/16 11:19 Duoneb - NEB 1 amp QIDR [facility] Administration Heparin Sodium (Porcine) 5,000 unit 03/27/16 10:00 03/28/16 11:37 Heparin - SQ 5,000 unit BID [facility] Administration IV Flush 8 ml 03/28/16 10:01 Picc Line Flush IVPUSH PRN PRN Protocol Levothyroxine Sodium 50 mcg 03/28/16 03:15 03/28/16 03:46 Synthroid - PO 50 mcg DAILY@0000 [facility] Administration Methylprednisolone Sodium Succinate 80 mg 03/27/16 09:00 03/28/16 11:38 Solu-Medrol - IVPB 80 mg Q8H-IV [facility] Administration 51 year old female presented to the ED with chief complaints of SOB x 4days ASSESSMENT: 1. AE of Asthma 2. COPD - Now stable 3. Hypoglycemia 4. 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 Patient presented with SOB, no h/o fever, afebrile since admission, negative CXR. Doesn't need antibiotics at this time, discussed with Dr. Stanford. Increase in white count could be due to use of steroids. If needed, can use Azithromycin, confirmed with patient that is is not allergic to azithromycin Nasal oxygen PRN Inhaled bronchodilaters PRN Maintain oxygen sat >90% # FEN Not on IV fluids Electrolytes WNL # Prophylaxis For DVT: On Heparin For GI: Not indicated Illness, Investigation and plan of care explained to the patient. She verbalized understanding. Case discussed with Dr. Stanford. Thank you for the consultative opportunity. Visit type - Emergency Visit Emergency Visit: Yes ED Registration Date: 03/27/16 Care time: The patient presented to the Emergency Department on the above date and was hospitalized for further evaluation of their emergent condition. - New Patient This patient is new to me today: No - Critical Care Critical Care patient: No
--- NOTE | 2016-03-28 15:30 | PN ---
Progress Note (short form) - Note Progress Note: feels about the same still wheezing not much cough eating well no fevers or chills Vital Signs Period Temp Pulse Resp BP Sys/Edmonds Pulse Ox Last 24 Hr 97.8 F-98.8 F 77-111 18-22 128-139/74-76 95-95 cor-rrr lungs scattered wheeze abd soft,nt ext no edema CBC, BMP 03/28/16 06:00 03/28/16 06:00 Microbiology 03/27/16 17:00 Nasopharyngeal Swab Respiratory Virus Panel - Preliminary 03/27/16 17:00 Nasopharyngeal Swab Influenza Types A,B Antigen (NAE) - Final 03/27/16 17:00 Nasopharyngeal Swab - Final a/p acute asthma exacerbation multiple antibiotic allergies- tolerates zithromax and cipro management per pulmonary influenza screen negative please call back if needed
[2016-03-28] MEDS ORDERED: IBUPROFEN 400 MG TABLET (FP) PO PRN (21:55)
[2016-03-28] MEDS ORDERED: IBUPROFEN 400 MG TABLET (FP) PO ONE (22:00)
[2016-03-29] MEDS: LEVOTHYROXINE NA 50 MCG TABLET (FP) PO SCH ×2 (00:07→23:45)
[2016-03-29] MEDS: methylPREDNISolone NA SUCC 125 MG/2 ML VIAL IVPB SCH ×3 (01:27→17:15)
[2016-03-29] MEDS: ALBUTEROL SO4 2.5/IPRATROPIUM 0.5 INH SOL 3 ML VIAL.NEB. NEB SCH ×3 (06:06→18:14)
[2016-03-29] MEDS ORDERED: PT OWN MED DRAWER 7, Y5N ONE (10:09)
[2016-03-29] MEDS: HEPARIN NA (PORCINE) 5,000 UNITS/ML 1ML VIAL SQ SCH ×2 (10:17→22:28)
--- NOTE | 2016-03-29 14:21 | PN ---
Progress Note (short form) - Note Progress Note: PULMONARY APPEARS DYSPNEIC VSS/AFEBRILE ANICTERIC B/L EXP RHONCHI S1S2 BS+ NO EDEMA LABS/MEDS/NOTES/IMAGING/MICRO REVIEWED A/P Acute Asthma Exacerbation COPD Hypothryoidism - continue medrol at current dose - inhaled bronchodilators standing and PRN - O2 to keep SpO2 >90% - monitor daily peak flow - DVT prophylaxis - outpt PFTs - LABA/ICS/SAB- - Monitor WBC cell count Hany MCGUIRE MD
[2016-03-29] MEDS: ALBUTEROL SO4 0.083% IH SOL 2.5 MG/3 ML VIAL.NEB. NEB PRN (14:30)
--- NOTE | 2016-03-29 15:01 | PN ---
Progress Note, Physician Chief Complaint: STILL C/O SOB - Current Medication List Current Medications: Active Medications Albuterol Sulfate (Ventolin 0.083% Nebulizer Soln -) 1 amp NEB Q4H PRN PRN Reason: SHORT OF BREATH/WHEEZING Albuterol/Ipratropium (Duoneb -) 1 amp NEB QIDR [facility] Last Admin: 03/29/16 11:25 Dose: 1 amp Heparin Sodium (Porcine) (Heparin -) 5,000 unit SQ BID [facility] Last Admin: 03/29/16 10:17 Dose: 5,000 unit IV Flush (Picc Line Flush) 8 ml IVPUSH PRN PRN PRN Reason: Protocol Ibuprofen (Motrin -) 400 mg PO Q6H PRN PRN Reason: PAIN Levothyroxine Sodium (Synthroid -) 50 mcg PO DAILY@0000 [facility] Last Admin: 03/29/16 00:07 Dose: 50 mcg Methylprednisolone Sodium Succinate (Solu-Medrol -) 80 mg IVPB Q8H-IV [facility] Last Admin: 03/29/16 10:15 Dose: 80 mg - Objective Vital Signs: Vital Signs Temperature 97.4 F L 03/29/16 09:00 Pulse Rate 94 H 03/29/16 09:00 Respiratory Rate 20 03/29/16 09:00 Blood Pressure 138/84 03/29/16 09:00 O2 Sat by Pulse Oximetry (%) 95 03/29/16 09:00 Constitutional: Yes: Calm Cardiovascular: Yes: Regular Rate and Rhythm, S1, S2 Respiratory: Yes: Wheezes Gastrointestinal: Yes: Normal Bowel Sounds, Soft Edema: No Labs: CBC, BMP 03/28/16 06:00 03/28/16 06:00 Problem List - Problems (1) COPD (chronic obstructive pulmonary disease) Code(s): J44.9 - CHRONIC OBSTRUCTIVE PULMONARY DISEASE, UNSPECIFIED Qualifiers : COPD type: unspecified COPD Qualified Code(s): J44.9 - Chronic obstructive pulmonary disease, unspecified (2) Thyroid mass Code(s): E07.9 - DISORDER OF THYROID, UNSPECIFIED (3) Asthma Code(s): J45.909 - UNSPECIFIED ASTHMA, UNCOMPLICATED Assessment/Plan ACUTE ASTHMA STEROIDS IV NEBS DVT PROPHYLAXIS OOB TO CHAIR [employer]
[2016-03-30] MEDS: ALBUTEROL SO4 2.5/IPRATROPIUM 0.5 INH SOL 3 ML VIAL.NEB. NEB SCH ×5 (00:17→19:32)
[2016-03-30] MEDS: methylPREDNISolone NA SUCC 125 MG/2 ML VIAL IVPB SCH ×3 (02:14→17:49)
[2016-03-30 07:55] LABS: MCH 31.4 pg (25.7-33.7); MEAN CELL VOLUME 92.5 fl (80-96); MEAN PLT VOLUME 6.3 fl (7.5-11.1); PLATELET COUNT 340 K/MM3 (134-434); RDW 14.4 % (11.6-15.6); WHITE BLOOD COUNT 16.2 K/mm3 (4.0-10.0)
--- NOTE | 2016-03-30 09:49 | PN ---
Progress Note, Physician History of Present Illness: STILL WITH COUGH AND WHEEZING - Current Medication List Current Medications: Active Medications Albuterol Sulfate (Ventolin 0.083% Nebulizer Soln -) 1 amp NEB Q4H PRN PRN Reason: SHORT OF BREATH/WHEEZING Last Admin: 03/29/16 14:30 Dose: 1 amp Albuterol/Ipratropium (Duoneb -) 1 amp NEB [facility]IDR [facility] Last Admin: 03/30/16 07:29 Dose: 1 amp Heparin Sodium (Porcine) (Heparin -) 5,000 unit SQ BID [facility] Last Admin: 03/29/16 22:28 Dose: 5,000 unit IV Flush (Picc Line Flush) 8 ml IVPUSH PRN PRN PRN Reason: Protocol Ibuprofen (Motrin -) 400 mg PO Q6H PRN PRN Reason: PAIN Levothyroxine Sodium (Synthroid -) 50 mcg PO DAILY@0000 [facility] Last Admin: 03/29/16 23:45 Dose: 50 mcg Methylprednisolone Sodium Succinate (Solu-Medrol -) 80 mg IVPB Q8H-IV [facility] Last Admin: 03/30/16 02:14 Dose: 80 mg - Objective Vital Signs: Vital Signs Temperature 98.7 F 03/30/16 06:00 Pulse Rate 77 03/30/16 06:00 Respiratory Rate 20 03/30/16 06:00 Blood Pressure 154/85 03/30/16 06:00 O2 Sat by Pulse Oximetry (%) 95 03/29/16 21:00 Cardiovascular: Yes: Regular Rate and Rhythm Respiratory: Yes: Diminished, Rhonchi, Wheezes Gastrointestinal: Yes: Normal Bowel Sounds, Soft Labs: CBC, BMP 03/30/16 07:00 Problem List - Problems (1) Acute asthma exacerbation Assessment/Plan: IV STEROIDS NEBS CHECK CXR PULM ADD SINGUILAR Code(s): J45.901 - UNSPECIFIED ASTHMA WITH (ACUTE) EXACERBATION (2) Hypothyroidism Code(s): E03.9 - HYPOTHYROIDISM, UNSPECIFIED
[2016-03-30 10:02] LABS: PLATELET COMMENT2 NO CLOTTING DETECTED; PLATELET ESTIMATE ADEQUATE (NORMAL)
[2016-03-30] MEDS: HEPARIN NA (PORCINE) 5,000 UNITS/ML 1ML VIAL SQ SCH ×2 (10:16→22:13)
[2016-03-30 10:25] LABS: ALBUMIN 3.3 g/dl (3.4-5.0); ALK PHOS 84 U/L (45-117); ANION GAP 9 (8-16); BILIRUBIN,TOTAL 0.5 mg/dL (0.2-1.0); CALCIUM 8.2 mg/dL (8.5-10.1); CO2 27 mmol/L (21-32); CREATININE 0.8 mg/dL (0.55-1.02); GLUCOSE,RANDOM 141 mg/dL (74-106); SGOT/AST 20 U/L (15-37); SGPT/ALT 47 U/L (12-78); TOT PROT 6.6 g/dl (6.4-8.2)
--- NOTE | 2016-03-30 12:59 | PN ---
Progress Note (short form) - Note Progress Note: PULMONARY APPEARS LESS DYSPNEIC VSS/AFEBRILE ANICTERIC B/L EXP RHONCHI S1S2 BS+ NO EDEMA LABS/MEDS/NOTES/IMAGING/MICRO REVIEWED A/P Acute Asthma Exacerbation COPD Hypothryoidism - continue medrol at current dose - inhaled bronchodilators standing and PRN - O2 to keep SpO2 >90% - monitor daily peak flow - DVT prophylaxis - outpt PFTs - LABA/ICS/ADI - Monitor WBC cell count Hany MCGUIRE MD
[2016-03-30] MEDS ORDERED: POTASSIUM CHLORIDE TABS 20 MEQ TABLET.ER (FP) PO ONE (13:59)
[2016-03-30] MEDS: AZITHROMYCIN IVPB 250 ML IVPB SCH (15:11)
[2016-03-30] MEDS ORDERED: FUROSEMIDE 40 MG/4 ML INJECTABLE VIAL IVPB ONE (17:39)
[2016-03-30 19:07] LABS: TROPONIN I 0.05 ng/ml (0.00-0.05)
[2016-03-30] MEDS: MONTELUKAST NA 10 MG TABLET PO SCH (22:13)
[2016-03-31] MEDS: LEVOTHYROXINE NA 50 MCG TABLET (FP) PO SCH ×2 (00:20→11:55)
[2016-03-31] MEDS: ALBUTEROL SO4 2.5/IPRATROPIUM 0.5 INH SOL 3 ML VIAL.NEB. NEB SCH ×5 (00:29→23:02)
[2016-03-31] MEDS: methylPREDNISolone NA SUCC 125 MG/2 ML VIAL IVPB SCH ×2 (02:54→10:37)
[2016-03-31 09:14] LABS: CALCIUM 8.5 mg/dL (8.5-10.1); CREATININE 0.8 mg/dL (0.55-1.02)
[2016-03-31] MEDS ORDERED: AZITHROMYCIN IVPB 250 ML IVPB SCH (10:00)
--- NOTE | 2016-03-31 10:02 | PN ---
Progress Note (short form) - Note Progress Note: PULMONARY APPEARS LESS DYSPNEIC VSS/AFEBRILE ANICTERIC B/L EXP RHONCHI S1S2 BS+ NO EDEMA LABS/MEDS/NOTES/IMAGING/MICRO REVIEWED A/P Acute Asthma Exacerbation COPD Hypothryoidism - continue medrol dose has been adjusted - inhaled bronchodilators standing and PRN - O2 to keep SpO2 >90% - monitor daily peak flow - DVT prophylaxis - outpt PFTs - LABA/ICS/ADI - Monitor WBC cell count Hany MCGUIRE MD
[2016-03-31] MEDS: AZITHROMYCIN IVPB 250 ML IVPB SCH (10:36)
[2016-03-31] MEDS: HEPARIN NA (PORCINE) 5,000 UNITS/ML 1ML VIAL SQ SCH ×2 (10:36→22:06)
--- NOTE | 2016-03-31 11:01 | PN ---
Progress Note, Physician History of Present Illness: STILL WITH COUGH AND WHEEZING BUT BETTER - Current Medication List Current Medications: Active Medications Albuterol Sulfate (Ventolin 0.083% Nebulizer Soln -) 1 amp NEB Q4H PRN PRN Reason: SHORT OF BREATH/WHEEZING Last Admin: 03/29/16 14:30 Dose: 1 amp Albuterol/Ipratropium (Duoneb -) 1 amp NEB QIDR [facility] Last Admin: 03/31/16 07:18 Dose: 1 amp Heparin Sodium (Porcine) (Heparin -) 5,000 unit SQ BID [facility] Last Admin: 03/31/16 10:36 Dose: 5,000 unit Azithromycin (Zithromax 500mg Ivpb (Pre-Docked)) 250 mls @ 250 mls/hr IVPB DAILY [facility] Last Admin: 03/31/16 10:36 Dose: 250 mls/hr Levothyroxine Sodium (Synthroid -) 50 mcg PO DAILY@0000 [facility] Last Admin: 03/31/16 00:20 Dose: 50 mcg Methylprednisolone Sodium Succinate (Solu-Medrol -) 40 mg IVPB Q6H-IV [facility] Montelukast Sodium (Singulair -) 10 mg PO HS [facility] Last Admin: 03/30/16 22:13 Dose: 10 mg - Objective Vital Signs: Vital Signs Temperature 98.4 F 03/31/16 06:50 Pulse Rate 69 03/31/16 06:50 Respiratory Rate 20 03/31/16 06:50 Blood Pressure 160/80 03/31/16 06:50 O2 Sat by Pulse Oximetry (%) 95 03/30/16 21:00 Cardiovascular: Yes: Regular Rate and Rhythm Respiratory: Yes: Diminished, Rhonchi Gastrointestinal: Yes: Normal Bowel Sounds, Soft Labs: CBC, BMP 03/30/16 07:00 03/31/16 07:00 Problem List - Problems (1) Acute asthma exacerbation Assessment/Plan: IV STEROIDS NEBS CHECK CXR--CT OF CHEST PULM ADD SINGUILAR Code(s): J45.901 - UNSPECIFIED ASTHMA WITH (ACUTE) EXACERBATION (2) Hypothyroidism Assessment/Plan: SAME MEDS Code(s): E03.9 - HYPOTHYROIDISM, UNSPECIFIED (3) CHF (congestive heart failure) Assessment/Plan: ECHO NL LV CARDIO GIVEN LASIX Code(s): I50.9 - HEART FAILURE, UNSPECIFIED
--- NOTE | 2016-03-31 15:27 | CONSULT ---
Consult Consult Specialty:: Cardiology Referred by:: Dr Francis Reason for Consultation:: CHF - History of Present Illness History of Present Illness: 51 yo female with hx of Asthma, hypoglycemia, hypothyroidism and COPD who presents to the ED with 4 days of SOB. Patient recently came from [place] recently and thought that the changes in temperature triggered her symptoms. She also reports nonproductive cough. She has no cardiac history except for skipped beats, for which she saw cardiology at [facility] yrs ago -. told everything was ok At baseline, she is very active. She walks a lot, for hrs, w/o symptoms. She gets sharp CP at times, when she is nervous -. resolved when she relaxes. Those are never exertional. She denies sign OMER, though she may have had mild R OMER recently. She denies orthopnea or PND at baseline. She has been gaining wt since having partial thyroidectomy -. meds being adjusted Patient says she has not improved since admission. Yesterday afternoon, a CXR showed increased central markings, BNP was 476 -. given lasix 40 IVP with sign urination per pt (not measured) -. no improvement in symptoms - History Source History Provided By: Patient - Past Medical History Pulmonary: Yes: Asthma (hospitalize dfro 1 month once at [facility] after feeling SOB and using bleach. Incidentally, she did the same think this time before coming in.), COPD ...LMP: 05/23/15 Endocrine: Yes: Hypothyroidism - Past Surgical History Past Surgical History: Yes: Joint Replacement (left knee) Additional Surgical History: partial thyroid resection - Alcohol/Substance Use Hx Alcohol Use: No - Smoking History Smoking history: Never smoked Have you smoked in the past 12 months: No Home Medications - Allergies Allergies/Adverse Reactions: Allergies Allergy/AdvReac Type Severity Reaction Status Date / Time ketorolac tromethamine Allergy Severe Difficulty Verified 03/27/16 01:54 [From Toradol] Breathing morphine Allergy Severe Difficulty Verified 03/27/16 01:54 Breathing tramadol Allergy Severe Difficulty Verified 03/27/16 01:54 Breathing levofloxacin [From Levaquin] Allergy Intermediate Hives Verified 03/27/16 01:54 Penicillins Allergy Intermediate Swelling Verified 03/27/16 01:54 Sulfa (Sulfonamide Allergy Intermediate Rash Verified 03/27/16 01:54 Antibiotics) clindamycin Allergy Verified 03/27/16 01:54 acetaminophen [From Percocet] AdvReac Severe Vomiting Verified 03/27/16 01:54 oxycodone HCl [From Percocet] AdvReac Severe Vomiting Verified 03/27/16 01:54 PECANS Allergy Intermediate Swelling Uncoded 03/27/16 01:54 contrast dye Allergy Uncoded 03/27/16 01:54 MUSHROOMS Allergy Rash Uncoded 03/27/16 01:54 SEAFOOD Allergy Swelling Uncoded 03/27/16 01:54 - Home Medications Home Medications: Ambulatory Orders Albuterol Sulfate Inhaler - [Ventolin HFA Inhaler -] 1 - 2 inh PO QID 06/16/14 Levothyroxine [Synthroid -] 50 mcg PO DAILY 03/27/16 Family Disease History - Family Disease History Family History: Denies (premature CAD) Review of Systems - Review of Systems Constitutional: reports: No Symptoms Eyes: reports: No Symptoms HENT: reports: No Symptoms Neck: reports: No Symptoms Cardiovascular: reports: Chest Pain, Edema, Shortness of Breath Respiratory: reports: Cough, SOB on Exertion Gastrointestinal: reports: No Symptoms Genitourinary: reports: No Symptoms Musculoskeletal: reports: Joint Pain Neurological: reports: No Symptoms Hematology/Lymphatic: reports: No Symptoms Physical Exam Vital Signs: Vital Signs Temperature 98.4 F 03/31/16 10:00 Pulse Rate 83 03/31/16 10:00 Respiratory Rate 20 03/31/16 10:00 Blood Pressure 155/92 03/31/16 10:00 O2 Sat by Pulse Oximetry (%) 95 03/30/16 21:00 Constitutional: Yes: No Distress Eyes: Yes: Conjunctiva Clear HENT: Yes: Atraumatic Neck: Yes: Supple Cardiovascular: Yes: Regular Rate and Rhythm. No: Murmur Respiratory: Yes: Rhonchi (mild). No: Rales, Wheezes Gastrointestinal: Yes: Normal Bowel Sounds, Soft, Abdomen, Obese. No: Tenderness Extremities: Yes: Other (varicose vein on the left mostly) Edema: No Peripheral Pulses WNL: Yes Neurological: Yes: Alert, Oriented Psychiatric: Yes: Alert, Oriented Labs: CBC, BMP 03/30/16 07:00 03/31/16 07:00 Imaging - Results Chest X-ray: Report Reviewed, Image Reviewed EKG: Report Reviewed, Image Reviewed Other: Other (echo (03/27/16) -. Nl LV size and function, Mild LAE and LA, tr- mild MR, mild TR, nl PASP) Assessment/Plan 51 yo female with the above history, here with SOB/cough/wheezing -. treated fro asthma exacerbation w/o improvement. Yesterday, pt was given a dose of lasix based on CXR and mildly elevated BNP -. however, she reports no improvement, eventhough she urinated a lot by report Doubt ACS -. CE neg, EKG unremarkable Echo was unremarkable. Her story is not very suggestive for CHF, except for her wt gain, which has been ascribed to her thyroid Her BUN went up in response to the lasix -. becoming dry? Pt did say she used bleach after developing SOB -. something she did yrs ago and landed her in the hospital for 1 month with asthma exacerbation Rec: Replete K -. give a total of 60 meq today Follow renal function in AM Consider another dose of lasix based on clinical picture and labs Thanks! We'll follow!
[2016-03-31] MEDS ORDERED: POTASSIUM CHLORIDE TABS 20 MEQ TABLET.ER (FP) PO ONE ×2 (15:55→16:30)
[2016-03-31] MEDS: methylPREDNISolone NA SUCC 40 MG/1 ML VIAL IVPB SCH ×2 (17:10→22:08)
[2016-03-31] MEDS: MONTELUKAST NA 10 MG TABLET PO SCH (22:07)
[2016-04-01] MEDS: ALBUTEROL SO4 0.083% IH SOL 2.5 MG/3 ML VIAL.NEB. NEB PRN ×2 (02:58→14:40)
[2016-04-01] MEDS: methylPREDNISolone NA SUCC 40 MG/1 ML VIAL IVPB SCH ×3 (03:28→19:21)
[2016-04-01] MEDS: ALBUTEROL SO4 2.5/IPRATROPIUM 0.5 INH SOL 3 ML VIAL.NEB. NEB SCH (06:50)
--- NOTE | 2016-04-01 08:46 | PN ---
Progress Note, Physician History of Present Illness: No new complaints. - Current Medication List Current Medications: Active Medications Albuterol Sulfate (Ventolin 0.083% Nebulizer Soln -) 1 amp NEB Q4H PRN PRN Reason: SHORT OF BREATH/WHEEZING Last Admin: 04/01/16 02:58 Dose: 1 amp Albuterol/Ipratropium (Duoneb -) 1 amp NEB QIDR [facility] Last Admin: 04/01/16 06:50 Dose: 1 amp Heparin Sodium (Porcine) (Heparin -) 5,000 unit SQ BID [facility] Last Admin: 03/31/16 22:06 Dose: 5,000 unit Azithromycin (Zithromax 500mg Ivpb (Pre-Docked)) 250 mls @ 250 mls/hr IVPB DAILY [facility] Last Admin: 03/31/16 10:36 Dose: 250 mls/hr Levothyroxine Sodium (Synthroid -) 50 mcg PO DAILY@0000 [facility] Last Admin: 03/31/16 11:55 Dose: 50 mcg Methylprednisolone Sodium Succinate (Solu-Medrol -) 40 mg IVPB Q6H-IV [facility] Last Admin: 04/01/16 03:28 Dose: 40 mg Montelukast Sodium (Singulair -) 10 mg PO HS [facility] Last Admin: 03/31/16 22:07 Dose: 10 mg - Objective Vital Signs: Vital Signs Temperature 98.4 F 04/01/16 06:00 Pulse Rate 73 04/01/16 06:00 Respiratory Rate 20 04/01/16 06:00 Blood Pressure 148/80 04/01/16 06:00 O2 Sat by Pulse Oximetry (%) 95 03/31/16 21:00 Constitutional: Yes: No Distress Eyes: Yes: Conjunctiva Clear, EOM Intact Cardiovascular: Yes: Regular Rate and Rhythm. No: JVD Respiratory: Yes: CTA Bilaterally Gastrointestinal: Yes: Normal Bowel Sounds, Soft Edema: No Labs: CBC, BMP 03/30/16 07:00 03/31/16 07:00 Assessment/Plan 51 yo female with hx of Asthma, hypoglycemia, hypothyroidism and COPD. Admitted with 4 days of SOB, which occurred after cleaning with bleach per patient's report. Low clinical suspicion for CHF depsite mildly elevated BNP of 476. 03/27/16 Echocardiogram: Normal LVEF. Trace to mild MR. Mild TR. 03/30/16 CXR: No significant effusions or congestion. 03/31/[address]: No effusions noted on my review. Final report pending. RECS: Replacement of hypokalemia as per primary team. No further inpatient cardiac work-up or intervention is clinically indicated. Would not given any further lasix as patient is not in heart failure. Will see prn. Call with questions.
--- NOTE | 2016-04-01 10:02 | PN ---
Progress Note (short form) - Note Progress Note: Breathing about the same. Chemult like she was "choking" from secretions last night, that was improved with BD TX. Some left pleuritic discomfort with cough. Finding it hard to expectorate. Afebrile. Intake & Output 03/29/16 03/30/16 03/31/16 04/01/16 23:59 23:59 23:59 23:59 Intake Total 2150 1200 1050 150 Balance 2150 1200 1050 150 Last Vital Signs Temp Pulse Resp BP Pulse Ox 98.4 F 73 20 148/80 95 04/01/16 06:00 04/01/16 06:00 04/01/16 06:00 04/01/16 06:00 03/31/16 21:00 Active Medications Albuterol Sulfate (Ventolin 0.083% Nebulizer Soln -) 1 amp NEB Q4H PRN PRN Reason: SHORT OF BREATH/WHEEZING Last Admin: 04/01/16 02:58 Dose: 1 amp Albuterol/Ipratropium (Duoneb -) 1 amp NEB QIDR [facility] Last Admin: 04/01/16 06:50 Dose: 1 amp Heparin Sodium (Porcine) (Heparin -) 5,000 unit SQ BID [facility] Last Admin: 03/31/16 22:06 Dose: 5,000 unit Azithromycin (Zithromax 500mg Ivpb (Pre-Docked)) 250 mls @ 250 mls/hr IVPB DAILY [facility] Last Admin: 03/31/16 10:36 Dose: 250 mls/hr Levothyroxine Sodium (Synthroid -) 50 mcg PO DAILY@0000 [facility] Last Admin: 03/31/16 11:55 Dose: 50 mcg Methylprednisolone Sodium Succinate (Solu-Medrol -) 40 mg IVPB Q6H-IV [facility] Last Admin: 04/01/16 03:28 Dose: 40 mg Montelukast Sodium (Singulair -) 10 mg PO HS [facility] Last Admin: 03/31/16 22:07 Dose: 10 mg Gen: NAD at rest Heart: RRR Lung: no wheezes, few scattered rhonchi Abd: soft, nontender Ext: no edema Problem List - Problems (1) Acute asthma exacerbation Code(s): J45.901 - UNSPECIFIED ASTHMA WITH (ACUTE) EXACERBATION (2) COPD (chronic obstructive pulmonary disease) Code(s): J44.9 - CHRONIC OBSTRUCTIVE PULMONARY DISEASE, UNSPECIFIED Qualifiers : COPD type: unspecified COPD Qualified Code(s): J44.9 - Chronic obstructive pulmonary disease, unspecified (3) Hypothyroidism Code(s): E03.9 - HYPOTHYROIDISM, UNSPECIFIED A/P Acute Asthma Exacerbation COPD Hypothryoidism - Medrol taper - inhaled bronchodilators standing and PRN - O2 to keep SpO2 >90% - monitor daily peak flow - DVT prophylaxis - outpatient PFTs once stable - when ready for discharge, should be discharged on high dose LABA/ICS - Will D/C albuterol and give Mucomyst to aide expectorate Dr Hawley
[2016-04-01] MEDS ORDERED: POTASSIUM CHLORIDE TABS 20 MEQ TABLET.ER (FP) PO ONE (10:30)
--- NOTE | 2016-04-01 10:44 | PN ---
Progress Note, Physician Chief Complaint: CONCERNED BC NOT RESOLVING PAST AAE - Current Medication List Current Medications: Active Medications Acetylcysteine (Mucomyst 20 Oral / Inh Use Only*) 200 mg NEB BID@0600,1800 [facility] Albuterol Sulfate (Ventolin 0.083% Nebulizer Soln -) 1 amp NEB Q4H PRN PRN Reason: SHORT OF BREATH/WHEEZING Last Admin: 04/01/16 02:58 Dose: 1 amp Albuterol Sulfate (Ventolin 0.083% Nebulizer Soln -) 1 amp NEB QIDR [facility] Heparin Sodium (Porcine) (Heparin -) 5,000 unit SQ BID [facility] Last Admin: 03/31/16 22:06 Dose: 5,000 unit Azithromycin (Zithromax 500mg Ivpb (Pre-Docked)) 250 mls @ 250 mls/hr IVPB DAILY [facility] Last Admin: 03/31/16 10:36 Dose: 250 mls/hr Levothyroxine Sodium (Synthroid -) 50 mcg PO DAILY@0000 [facility] Last Admin: 03/31/16 11:55 Dose: 50 mcg Methylprednisolone Sodium Succinate (Solu-Medrol -) 40 mg IVPB Q8H-IV [facility] Montelukast Sodium (Singulair -) 10 mg PO HS [facility] Last Admin: 03/31/16 22:07 Dose: 10 mg - Objective Vital Signs: Vital Signs Temperature 98.4 F 04/01/16 06:00 Pulse Rate 73 04/01/16 06:00 Respiratory Rate 20 04/01/16 06:00 Blood Pressure 148/80 04/01/16 06:00 O2 Sat by Pulse Oximetry (%) 95 03/31/16 21:00 Constitutional: Yes: Calm Cardiovascular: Yes: Regular Rate and Rhythm, S1, S2 Respiratory: Yes: Rhonchi Gastrointestinal: Yes: Normal Bowel Sounds, Soft Edema: No Labs: CBC, BMP 03/30/16 07:00 03/31/16 07:00 Problem List - Problems (1) COPD (chronic obstructive pulmonary disease) Code(s): J44.9 - CHRONIC OBSTRUCTIVE PULMONARY DISEASE, UNSPECIFIED Qualifiers : COPD type: unspecified COPD Qualified Code(s): J44.9 - Chronic obstructive pulmonary disease, unspecified (2) Thyroid mass Code(s): E07.9 - DISORDER OF THYROID, UNSPECIFIED (3) Asthma Code(s): J45.909 - UNSPECIFIED ASTHMA, UNCOMPLICATED Assessment/Plan (1) Acute asthma exacerbation Assessment/Plan: IV STEROIDS NEBS CHECK CXR--CT OF CHEST -> CONSOLIDATION PULM CONSULT APPRECIATED ADD SINGUILAR Code(s): J45.901 - UNSPECIFIED ASTHMA WITH (ACUTE) EXACERBATION (2) Hypothyroidism Assessment/Plan: SAME MEDS Code(s): E03.9 - HYPOTHYROIDISM, UNSPECIFIED (3) CHF (congestive heart failure) Assessment/Plan: ECHO NL LV CARDIO ON CASE GIVEN LASIX Code(s): I50.9 - HEART FAILURE, UNSPECIFIED [facility] FM
[2016-04-01] MEDS: ALBUTEROL SO4 0.083% IH SOL 2.5 MG/3 ML VIAL.NEB. NEB SCH ×2 (11:00→18:29)
[2016-04-01] MEDS: AZITHROMYCIN IVPB 250 ML IVPB SCH (11:15)
[2016-04-01] MEDS: HEPARIN NA (PORCINE) 5,000 UNITS/ML 1ML VIAL SQ SCH ×2 (11:19→22:43)
[2016-04-01] MEDS: ACETYLCYSTEINE 20% 200MG/ML 4 ML VIAL *FOR ORAL / INH USE ONLY NEB SCH ×2 (14:40→18:29)
[2016-04-01] MEDS: MONTELUKAST NA 10 MG TABLET PO SCH (22:43)
[2016-04-02] MEDS: ALBUTEROL SO4 0.083% IH SOL 2.5 MG/3 ML VIAL.NEB. NEB SCH ×5 (00:02→17:45)
[2016-04-02] MEDS: LEVOTHYROXINE NA 50 MCG TABLET (FP) PO SCH (00:13)
[2016-04-02] MEDS: methylPREDNISolone NA SUCC 40 MG/1 ML VIAL IVPB SCH ×3 (02:11→22:50)
[2016-04-02] MEDS: ACETYLCYSTEINE 20% 200MG/ML 4 ML VIAL *FOR ORAL / INH USE ONLY NEB SCH ×2 (07:22→17:45)
[2016-04-02 09:18] LABS: MCH 31.5 pg (25.7-33.7); MCHC 33.6 g/dl (32.0-36.0); MEAN PLT VOLUME 6.6 fl (7.5-11.1); PLATELET COUNT 342 K/MM3 (134-434); RDW 14.4 % (11.6-15.6); WHITE BLOOD COUNT 18.4 K/mm3 (4.0-10.0)
--- NOTE | 2016-04-02 09:51 | PN ---
Progress Note (short form) - Note Progress Note: Appears slightly clinically better today. Still with difficulty expectorating. SOB better. Ambulated in room last night. Less left pleuritic discomfort with cough. Afebrile. Intake & Output 03/30/16 03/31/16 04/01/16 04/02/16 23:59 23:59 23:59 23:59 Intake Total 1200 1050 850 100 Balance 1200 1050 850 100 Last Vital Signs Temp Pulse Resp BP Pulse Ox 97.6 F 69 20 159/86 95 04/02/16 06:00 04/02/16 06:00 04/02/16 06:00 04/02/16 06:00 04/01/16 21:00 Active Medications Acetylcysteine (Mucomyst 20 Oral / Inh Use Only*) 200 mg NEB BID@0600,1800 [facility] Last Admin: 04/02/16 07:22 Dose: 200 mg Albuterol Sulfate (Ventolin 0.083% Nebulizer Soln -) 1 amp NEB Q4H PRN PRN Reason: SHORT OF BREATH/WHEEZING Last Admin: 04/01/16 14:40 Dose: 1 amp Albuterol Sulfate (Ventolin 0.083% Nebulizer Soln -) 1 amp NEB QIDR [facility] Last Admin: 04/02/16 07:22 Dose: 1 amp Heparin Sodium (Porcine) (Heparin -) 5,000 unit SQ BID [facility] Last Admin: 04/01/16 22:43 Dose: 5,000 unit Azithromycin (Zithromax 500mg Ivpb (Pre-Docked)) 250 mls @ 250 mls/hr IVPB DAILY [facility] Last Admin: 04/01/16 11:15 Dose: 250 mls/hr Levothyroxine Sodium (Synthroid -) 50 mcg PO DAILY@0000 [facility] Last Admin: 04/02/16 00:13 Dose: 50 mcg Methylprednisolone Sodium Succinate (Solu-Medrol -) 40 mg IVPB Q8H-IV [facility] Last Admin: 04/02/16 02:11 Dose: 40 mg Montelukast Sodium (Singulair -) 10 mg PO HS [facility] Last Admin: 04/01/16 22:43 Dose: 10 mg Gen: NAD at rest Heart: RRR Lung: no wheezes, few scattered rhonchi Abd: soft, nontender Ext: no edema Laboratory Results - last 24 hr 04/02/16 06:20 WBC 18.4 H RBC 4.32 Hgb 13.6 Hct 40.6 MCV 94.0 MCHC 33.6 RDW 14.4 Plt Count 342 MPV 6.6 L Neutrophils % Y Lymphocytes % Y Problem List - Problems (1) Acute asthma exacerbation Code(s): J45.901 - UNSPECIFIED ASTHMA WITH (ACUTE) EXACERBATION (2) COPD (chronic obstructive pulmonary disease) Code(s): J44.9 - CHRONIC OBSTRUCTIVE PULMONARY DISEASE, UNSPECIFIED Qualifiers : COPD type: unspecified COPD Qualified Code(s): J44.9 - Chronic obstructive pulmonary disease, unspecified (3) Hypothyroidism Code(s): E03.9 - HYPOTHYROIDISM, UNSPECIFIED A/P Acute Asthma Exacerbation COPD Hypothryoidism - Taper Medrol today - inhaled bronchodilators standing and PRN - O2 to keep SpO2 >90% - monitor daily peak flow - DVT prophylaxis - outpatient PFTs once stable - when ready for discharge, should be discharged on high dose LABA/ICS - Mucomyst to aide expectoration - Jami - Hope to be ready to D/C by tomorrow Dr Hawley
[2016-04-02 10:13] LABS: ALBUMIN 3.3 g/dl (3.4-5.0); ANION GAP 10 (8-16); CALCIUM 8.4 mg/dL (8.5-10.1); CO2 28 mmol/L (21-32); GLUCOSE,RANDOM 157 mg/dL (74-106)
[2016-04-02 10:15] LABS: ALK PHOS 92 U/L (45-117); BILIRUBIN,TOTAL 0.4 mg/dL (0.2-1.0); CREATININE 0.8 mg/dL (0.55-1.02); SGOT/AST 72 U/L (15-37); SGPT/ALT 175 U/L (12-78); TOT PROT 6.4 g/dl (6.4-8.2)
[2016-04-02] MEDS: AZITHROMYCIN IVPB 250 ML IVPB SCH (10:59)
[2016-04-02] MEDS: HEPARIN NA (PORCINE) 5,000 UNITS/ML 1ML VIAL SQ SCH ×2 (10:59→22:49)
--- NOTE | 2016-04-02 15:41 | PN ---
Progress Note, Physician Chief Complaint: AWAKE ALERT FEELING BETTER STILL HAS SOB - Current Medication List Current Medications: Active Medications Acetylcysteine (Mucomyst 20 Oral / Inh Use Only*) 200 mg NEB BID@0600,1800 [facility] Last Admin: 04/02/16 07:22 Dose: 200 mg Albuterol Sulfate (Ventolin 0.083% Nebulizer Soln -) 1 amp NEB Q4H PRN PRN Reason: SHORT OF BREATH/WHEEZING Last Admin: 04/01/16 14:40 Dose: 1 amp Albuterol Sulfate (Ventolin 0.083% Nebulizer Soln -) 1 amp NEB QIDR [facility] Last Admin: 04/02/16 12:00 Dose: 1 amp Heparin Sodium (Porcine) (Heparin -) 5,000 unit SQ BID [facility] Last Admin: 04/02/16 10:59 Dose: 5,000 unit Azithromycin (Zithromax 500mg Ivpb (Pre-Docked)) 250 mls @ 250 mls/hr IVPB DAILY [facility] Last Admin: 04/02/16 10:59 Dose: 250 mls/hr Levothyroxine Sodium (Synthroid -) 50 mcg PO DAILY@0000 [facility] Last Admin: 04/02/16 00:13 Dose: 50 mcg Methylprednisolone Sodium Succinate (Solu-Medrol -) 40 mg IVPB Q12H [facility] Last Admin: 04/02/16 11:02 Dose: 40 mg Montelukast Sodium (Singulair -) 10 mg PO HS [facility] Last Admin: 04/01/16 22:43 Dose: 10 mg - Objective Vital Signs: Vital Signs Temperature 97.8 F 04/02/16 09:00 Pulse Rate 89 04/02/16 09:00 Respiratory Rate 22 04/02/16 09:00 Blood Pressure 140/86 04/02/16 09:00 O2 Sat by Pulse Oximetry (%) 96 04/02/16 09:00 Constitutional: Yes: Mild Distress Eyes: Yes: WNL HENT: Yes: WNL, Hoarseness Neck: Yes: WNL Cardiovascular: Yes: WNL Respiratory: Yes: Diminished, On Nasal O2, Wheezes Gastrointestinal: Yes: WNL Genitourinary: Yes: Other Musculoskeletal: Yes: Muscle Weakness Extremities: Yes: WNL Edema: No Peripheral Pulses WNL: Yes Integumentary: Yes: WNL Wound/Incision: Yes: Clean/Dry Neurological: Yes: WNL ...Motor Strength: WNL Psychiatric: Yes: WNL Labs: CBC, BMP 04/02/16 06:20 04/02/16 06:20 Problem List - Problems (1) Acute asthma exacerbation Code(s): J45.901 - UNSPECIFIED ASTHMA WITH (ACUTE) EXACERBATION (2) Asthma Code(s): J45.909 - UNSPECIFIED ASTHMA, UNCOMPLICATED (3) Hypothyroidism Code(s): E03.9 - HYPOTHYROIDISM, UNSPECIFIED (4) Atypical chest pain Code(s): R07.89 - OTHER CHEST PAIN Assessment/Plan ACUTE ASTHMA STEROIDS IV CHANGE TO PO PREDNISONE NEBS DVT PROPHYLAXIS OOB TO CHAIR DC PLANNING TOMORROW 04/03
[2016-04-02] MEDS: MONTELUKAST NA 10 MG TABLET PO SCH (22:50)
[2016-04-03] MEDS: LEVOTHYROXINE NA 50 MCG TABLET (FP) PO SCH
[2016-04-03] MEDS: ALBUTEROL SO4 0.083% IH SOL 2.5 MG/3 ML VIAL.NEB. NEB SCH ×3 (00:06→11:48)
[2016-04-03 07:39] VITALS: BP 152/98; PULSE 69; TEMP 97.8
[2016-04-03] MEDS: ACETYLCYSTEINE 20% 200MG/ML 4 ML VIAL *FOR ORAL / INH USE ONLY NEB SCH (07:40)
--- NOTE | 2016-04-03 09:27 | DS ---
Physical Examination Vital Signs: Vital Signs Temperature 97.8 F 04/03/16 07:38 Pulse Rate 69 04/03/16 07:38 Respiratory Rate 18 04/03/16 07:38 Blood Pressure 152/98 04/03/16 07:38 O2 Sat by Pulse Oximetry (%) 96 04/02/16 21:00 Findings/Remarks: had d/w patient & pharmacy refuse prednisone -> says does not work on her Constitutional: Yes: Calm Cardiovascular: Yes: Regular Rate and Rhythm, S1, S2 Respiratory: Yes: Wheezes Gastrointestinal: Yes: Normal Bowel Sounds, Soft Edema: No Labs: CBC, BMP 04/02/16 06:20 04/02/16 06:20 Discharge Summary Reason For Visit: COPD Current Active Problems Acute asthma exacerbation (Acute) Asthma (Acute) CHF (congestive heart failure) (Acute) COPD (chronic obstructive pulmonary disease) (Acute) Hypothyroidism (Acute) Hospital Course: (1) Acute asthma exacerbation Code(s): J45.901 - UNSPECIFIED ASTHMA WITH (ACUTE) EXACERBATION (2) Asthma Code(s): J45.909 - UNSPECIFIED ASTHMA, UNCOMPLICATED (3) Hypothyroidism Code(s): E03.9 - HYPOTHYROIDISM, UNSPECIFIED (4) Atypical chest pain Code(s): R07.89 - OTHER CHEST PAIN Assessment/Plan ACUTE ASTHMA STEROIDS IV CHANGE TO PO MEDROL DOSE PACK NEBS DVT PROPHYLAXIS OOB TO CHAIR DISCHARGE [facility] FM Condition: Poor - Instructions Referrals: Shanta Stockton MD [Primary Care Provider] - - Home Medications Comprehensive Discharge Medication List: Ambulatory Orders Albuterol Sulfate Inhaler - [Ventolin HFA Inhaler -] 1 - 2 inh PO QID 06/16/14 Levothyroxine [Synthroid -] 50 mcg PO DAILY 03/27/16
[2016-04-03] MEDS: HEPARIN NA (PORCINE) 5,000 UNITS/ML 1ML VIAL SQ SCH (10:45)
[2016-04-03] MEDS: methylPREDNISolone NA SUCC 40 MG/1 ML VIAL IVPB SCH (10:45)
[2016-04-03] MEDS: AZITHROMYCIN IVPB 250 ML IVPB SCH (10:45)
== END 2016-04-03 13:40 | disposition home or self-care (01) | DRG 202 ==
LOC: JER 01:49 → JERBED 06:15 → J8W 15:00
PROVIDERS: ADMIT Family Medicine; ATTEND Family Medicine
DX: J45.901 Unspecified asthma with (acute) exacerbation (principal); J44.1 Chronic obstructive pulmonary disease with (acute) exacerbation; E03.9 Hypothyroidism, unspecified; R07.89 Other chest pain; E87.6 Hypokalemia; G40.409 Other generalized epilepsy and epileptic syndromes, not intractable, without status epilepticus; E04.9 Nontoxic goiter, unspecified; I50.9 Heart failure, unspecified
CPT/HCPCS: 36415; 71010-TC; 71020-TC; 71250-TC; 80048; 80053; 82550; 83880; 84443; 84484; 85025; 87081; 87254; 87804; 93005; 93010; 93306-TC; 94150; 94640; 99284-25; J1644